=== PATIENT | male | born 1960 | race Caucasian/White ===

== ENCOUNTER 2020-04-28 14:03 | Outpatient (CLI) | payer OTHER, SELFPAY ==
--- NOTE | 2020-04-28 14:30 | XR_ITS ---
WS: [id number] Exam: XR KUB [id number] Date/Time of Exam: 04/28/2020 2:13 PM Reason For Exam: URETERAL STONE No bowel obstruction or free air. No abnormal calcifications seen in the region of the kidneys. Moder ate amount of stool in the colon. Bony structures are intact. Visualized organ margins are unremarkab le. XR/XR KUB [id number] IMPRESSION: 1. No acute finding. No significant abnormal abdominal calcification noted.
== END 2020-04-28 14:04 | disposition home or self-care (01) ==
PROVIDERS: PCP Family Medicine; Visit Provider Urology
DX: N20.1 Calculus of ureter (principal)
CPT/HCPCS: 74018; 81003

== ENCOUNTER 2020-11-20 09:01 | Outpatient (CLI) | payer OTHER, SELFPAY ==
[2020-11-20 09:10] VITALS: BP 125/72; PULSE 82; RESP 16; TEMP 36.8; O2SAT 96; BMI 25.7
[2020-11-20 09:40] VITALS: BP 127/72; PULSE 80; RESP 18; O2SAT 98
[2020-11-20 10:29] VITALS: BP 133/78; PULSE 80; RESP 18; TEMP 37.4; O2SAT 96
== END 2020-11-20 09:02 | disposition home or self-care (01) ==
LOC: OPS 09:06
PROVIDERS: PCP Family Medicine; Visit Provider Physician Assistant
DX: U07.1 COVID-19 (principal)
CPT/HCPCS: 96365

== ENCOUNTER 2021-08-19 10:57 | Emergency (ER) | payer OTHER, SELFPAY ==
[2021-08-19 11:22] VITALS: BP 133/72; PULSE 98; RESP 18; TEMP 38.5; O2SAT 95
--- NOTE | 2021-08-19 11:47 | CT_ITS ---
WS: [id number] CT ABDOMEN PELVIS TECHNIQUE: Contrast-enhanced CT of the abdomen and pelvis with coronal and sagittal reformatted image s. CLINICAL INFORMATION: periumbilical abdominal pain with fever COMPARISON: 2 25,019 DLP: 1102.[address] scans at [facility] use at least one of these dose optimization techniques: automated e xposure control; mA and/or kV adjustment per patient size (includes targeted exams where dose is matc hed to clinical indication); or iterative reconstruction. FINDINGS: Normal appendix in the RIGHT lower quadrant. No evidence of acute appendicitis. Lung bases are well aerated. Noncontrast liver is normal. Incidental hepatic cysts unchanged from pre vious. Normal GE junction. Normal spleen. Adrenal glands are normal. Normal pancreatic parenchymal en hancement. Normal portal vein and splenic vein. Normal caliber abdominal aorta. Normal celiac and SMA . Mild aortic calcification. Mild prostate enlargement measuring 3.6 x 3.2 CM. Normal sigmoid colon. No evidence of small or large bowel obstruction. Normal celiac and SMA. Prominent RIGHT extrarenal pelvis unchanged from previous. No obstructing renal or ureteral calculi. LEFT renal cortical atrophy. Normal bilateral renal parenc hymal enhancement. Small bilateral renal cysts. LEFT renal cortical scarring. Tiny incidental fat-con taining umbilical hernia. CT/CT abdomen pelvis w con* [id number] IMPRESSION: 1. Normal caliber fluid-filled appendix in the RIGHT lower quadrant. No eviden ce of acute appendicitis. 2. No obstructing renal or ureteral calculi. Prominent RIGHT extrarenal pelvis unchanged from previous. 3. Normal sigmoid colon. 4. Incidental hepatic cysts are unchanged. 5. Normal caliber abdominal aorta. 6. Tiny incidental fat-containing umbilical hernia. 7. No other acute findings.
--- NOTE | 2021-08-19 11:54 | W.ED.ABDPA2 ---
HPI - Abdominal Pain General: Chief Complaint: Abdominal Pain Stated Complaint: back/abdominal pain Time Seen by Provider: 08/19/21 11:29 History of Present Illness: 61-year-old male presents emergency department chief complaint of progressive abdominal pain noted around the umbilical region in the superior region this been ongoing progressively getting worse for last 3 days. Patient reports no prior history of any abdominal issues reports has had a low-grade fever at home reports moderate nausea with no vomiting associate with abdominal pain reports is quite sharp in nature with no radiation. Associated Symptoms: Reports chills, fever(s) and nausea Review of Systems General: Reports: 10 or more systems reviewed and unremarkable except in HPI and below Const: Reports: fever(s) and chills; Denies: fatigue or malaise Eyes: Denies: change in vision or blurry vision Card: Denies: chest pain or palpitations Resp: Denies: dyspnea or productive cough GI: Reports: abdominal pain and nausea : Denies: flank pain Musc: Denies: extremity pain or extremity swelling Skin/Breast: Denies: rash or pruritus Neuro: Denies: headache(s) Psych: Denies: anxiety or depression Dylan/Lymph: Denies: easy bleeding All/Imm: Denies: urticaria, throat swelling or facial swelling PFSH ED PFSH: Medical History HTN (hypertension) Metabolic acidosis Pyelonephritis Urolithiasis Surgical History History of lithotripsy History of wisdom tooth extraction Family History Mother Diabetes COMPLICATIONS Father Tuberculosis Social History Smoking and tobacco status: never smoked Alcohol intake: never Marital status: Current occupational status: employed Physical Exam Const: COMMON NORMALS: patient oriented x3 and healthy appearing; apparent distress (Patient appears to be in moderate distress due to pain) HENMT: COMMON NORMALS: normocephalic and atraumatic HEAD & SCALP: normocephalic and atraumatic Eye: COMMON NORMALS: Equal, round and reactive pupils present and EOMs intact bilaterally PUPIL: Yes Equal, round and reactive pupils present Neck/C-Spine: COMMON NORMALS: full ROM, supple and no JVD Lymph: LYMPHATIC: no lymphadenopathy noted Chest: COMMONS NORMALS: normal inspection of the chest and normal palpation of entire chest wall Resp: COMMON NORMALS: normal respiratory effort, No retractions and clear to auscultation bilaterally EFFORT & INSPECTION: Yes able to speak in complete sentences and Yes symmetric chest movement AUSCULTATION: clear to auscultation bilaterally Cardio: COMMON NORMALS: no JVD, regular rate and regular rhythm RATE: regular rate RHYTHM: regular rhythm GI: COMMON NORMALS: Soft to palpation; negative for non-tender (Moderate tenderness noted around the periumbilical region moderate guarding) INSPECTION: Yes normal to inspection PALPATION: Yes Soft to palpation : COMMON NORMALS: Yes no CVA tenderness BLADDER/KIDNEY EXAM: Yes no CVA tenderness Back/Pelvis: COMMON NORMALS: no CVA tenderness Extremity: COMMON NORMALS: normal to inspection and full ROM Neuro: COMMON NORMALS: patient oriented x3, CN's II-XII intact bilaterally, moves all extremities and no focal motor deficits Psych: COMMON NORMALS: mental status grossly normal, Normal thought process present, cooperative and normal affect THOUGHT PROCESS: Normal thought process present Skin: COMMON NORMALS: no rashes or lesions noted GENERAL SKIN EXAM: no rashes or lesions noted Course Vital Signs: Vital signs: Vital Signs Temperature 101.3 F H 08/19/21 11:22 Pulse Rate 85 08/19/21 14:06 Respiratory Rate 16 08/19/21 14:06 Blood Pressure 138/82 08/19/21 14:06 Pulse Oximetry 92 08/19/21 14:06 MDM - Abdominal Pain Medical Decision Making Due to the patient sitting this to be established labwork and imaging will be obtained underlying concerns of acute appendicitis versus other are prominent we will continue to follow. Patient is lab work imaging revealing a white count of 15.4 CT imaging revealed no acute appendicitis renal calculi or any obvious concerns patient does have a febrile illness of unknown origin and advised patient be follow-up with primary care doctor in 2 to 3 days in which to return the interim if any of his symptoms persist or worse he was provided with medication for both pain and nausea patient was discharged from the ER no obvious acute distress. Lab Data : 08/19/21 11:37 08/19/21 11:37 Labs/Radiology: Radiology Impressions Abdomen/Pelvis CT 08/19/21 11:47 IMPRESSION: 1. Normal caliber fluid-filled appendix in the RIGHT lower quadrant. No evidence of acute appendicitis. 2. No obstructing renal or ureteral calculi. Prominent RIGHT extrarenal pelvis unchanged from previous. 3. Normal sigmoid colon. 4. Incidental hepatic cysts are unchanged. 5. Normal caliber abdominal aorta. 6. Tiny incidental fat-containing umbilical hernia. 7. No other acute findings. Laboratory Results WBC 16.4 10^3/uL (4.0-10.0) H 08/19/21 11:37 RBC 4.95 10^6/uL (4.1-5.3) 08/19/21 11:37 Hgb 14.8 g/dL (11.7-16.6) 08/19/21 11:37 Hct 43.6 % (42.0-52.0) 08/19/21 11:37 MCV 88.1 fl (80-94) 08/19/21 11:37 MCH 29.9 pg (28.0-34.0) 08/19/21 11:37 MCHC 33.9 g/dL (30.0-36.0) 08/19/21 11:37 RDW 12.2 % (12.1-15.1) 08/19/21 11:37 Plt Count 270 10^3/cmm (130-400) 08/19/21 11:37 MPV 9.6 fL (7.4-10.4) 08/19/21 11:37 Neut % (Auto) 85.8 % 08/19/21 11:37 Lymph % (Auto) 3.4 % 08/19/21 11:37 [place] % (Auto) 9.2 % 08/19/21 11:37 Eos % (Auto) 0.1 % 08/19/21 11:37 Baso % (Auto) 0.2 % 08/19/21 11:37 Neut # (Auto) 14.10 10^3/uL (1.8-7.7) H 08/19/21 11:37 Lymph # (Auto) 0.6 10^3/uL (0.8-4.8) L 08/19/21 11:37 [place] # (Auto) 1.5 10^3/uL (0.2-0.9) H 08/19/21 11:37 Eos # (Auto) 0.0 10^3/uL (0.0-0.8) 08/19/21 11:37 Baso # (Auto) 0.0 10^3/uL (0.0-0.1) 08/19/21 11:37 Nucleated RBC % (auto) 0 % 08/19/21 11:37 Nucleated RBCs # 0.0 /100WBC 08/19/21 11:37 Sodium 125 mmol/L (136-145) L 08/19/21 11:37 Potassium 4.1 mmol/L (3.5-5.1) 08/19/21 11:37 Chloride 87 mmol/L (98-107) L 08/19/21 11:37 Carbon Dioxide 24 mmol/L (22-29) 08/19/21 11:37 Anion Gap 18.1 (5-19) 08/19/21 11:37 BUN 17 mg/dL (8-23) 08/19/21 11:37 Creatinine 1.0 mg/dL (0.7-1.2) 08/19/21 11:37 GFR Calculation 76.0 mL/min (90-130) L 08/19/21 11:37 Glucose 147 mg/dL (65-115) H 08/19/21 11:37 Calculated Osmolality 264 mOsm/kg (285-295) L 08/19/21 11:37 Lactate 1.2 mmol/L (0.5-2.2) 08/19/21 11:37 Calcium 9.1 mg/dL (8.5-10.5) 08/19/21 11:37 Total Bilirubin 0.4 mg/dL (0.15-1.2) 08/19/21 11:37 AST 58 U/L (0-40) H 08/19/21 11:37 ALT 90 U/L (0-41) H 08/19/21 11:37 Alkaline Phosphatase 85 IU/L (40-130) 08/19/21 11:37 C-Reactive Protein 143.6 mg/L (0.0-4.9) H 08/19/21 11:37 Total Protein 8.6 g/dL (6.6-8.7) 08/19/21 11:37 Albumin 3.9 g/dL (3.5-5.2) 08/19/21 11:37 Globulin 4.7 g/dL (1.3-4.6) H 08/19/21 11:37 Lipase 28 U/L (13-60) 08/19/21 11:37 Urine Color Yellow (Yellow) 08/19/21 12:19 Urine Appearance Clear (CLEAR) 08/19/21 12:19 Urine pH 5 (5-7) 08/19/21 12:19 Ur Specific [place] 1.015 (1.005-1.030) 08/19/21 12:19 Urine Protein 1+ (Negative) H 08/19/21 12:19 Urine Glucose (UA) Norm (Normal) 08/19/21 12:19 Urine Ketones 1+ (Negative) H 08/19/21 12:19 Urine Blood 3+ (Negative) H 08/19/21 12:19 Urine Nitrate Negative (Negative) 08/19/21 12:19 Urine Bilirubin Neg (Negative) 08/19/21 12:19 Urine Urobilinogen Norm mg/dL (Negative) 08/19/21 12:19 Ur Leukocyte Esterase Negative (Negative) 08/19/21 12:19 Urine RBC None /hpf (0-2) 08/19/21 12:19 Urine WBC None /hpf (0-5) 08/19/21 12:19 Ur Squamous Epith Cells None /hpf (0-5) 08/19/21 12:19 Amorphous Sediment Not Reportable 08/19/21 12:19 Urine Bacteria None /hpf (NONE) 08/19/21 12:19 Urine Mucus N /hpf 08/19/21 12:19 Urine Opiates Screen Negative ng/mL (Negative) 08/19/21 12:19 Ur Barbiturates Screen Negative ng/mL (Negative) 08/19/21 12:19 Ur Phencyclidine Scrn Negative ng/mL (Negative) 08/19/21 12:19 Ur Amphetamines Screen Negative ng/mL (Negative) 08/19/21 12:19 U Benzodiazepines Scrn Negative ng/mL (Negative) 08/19/21 12:19 Urine Cocaine Screen Negative ng/mL (Negative) 08/19/21 12:19 U Marijuana (THC) Screen Negative ng/mL (Negative) 08/19/21 12:19 Influenza Type A Ag Negative (Negative) 08/19/21 12:19 Influenza Type B Ag Negative (Negative) 08/19/21 12:19 Discharge Plan Discharge Patient Disposition: Home Clinical Impression: Abdominal pain, Fever Condition: Stable Prescriptions: New tramadol 50 mg tablet 50 mg PO Q8H PRN (Reason: pain) Qty: 15 0RF ondansetron HCl 4 mg tablet 4 mg PO Q8H PRN (Reason: nausea and vomiting) Qty: 14 0RF No Action verapamil 80 mg tablet 80 mg PO DAILY 0RF lisinopril 10 mg tablet 10 mg PO DAILY 0RF allopurinol 300 mg tablet 150 mg PO DAILY 0RF metformin 500 mg tablet 500 mg PO DAILY 0RF Mucinex D 60-600 mg Tablet Extended Release 12 Hr 1 tab PO BID PRN (Reason: Cold Symptoms) 0RF amoxicillin-pot clavulanate 875-125 mg Tablet 1 tab PO BID 0RF Discharge Orders: Discharge ED (Routine); Ordered 08/19/21 Ordered By: [place] Referrals: Alpesh Dumont MD [Primary Care Provider] - 1-3 days Discharge Diet: Advance as tolerated Discharge Activity: Increase activity as tolerated Patient Instructions: Fever - Adult, Abdominal Pain (ED), Opioid Safety Activity Restrictions/Additional Instructions: Follow-up with your primary care doctor in 2 to 3 days, take medication as prescribed increase your water consumption neck several days please return the interim if any of your symptoms persist or worse. Coding Level of Care Code ED [employer] for Priscila Villafuerte Exam Comprehensive
[2021-08-19 11:57] LABS: Basophils % 0.2 %; Eosinophils % 0.1 %; Hematocrit 43.6 % (42.0-52.0); Hemoglobin 14.8 g/dL (11.7-16.6); Lymphocytes # 0.6 10^3/uL (0.8-4.8); Lymphocytes % 3.4 %; Mean Corpuscular HGB Conc 33.9 g/dL (30.0-36.0); Mean Corpuscular Hemoglobin 29.9 pg (28.0-34.0); Mean Corpuscular Volume 88.1 fl (80-94); Mean Platelet Volume 9.6 fL (7.4-10.4); Monocytes # 1.5 10^3/uL (0.2-0.9); Monocytes % 9.2 %; Neutrophils % 85.8 %; Nucleated Red Blood Cells % 0 %; Platelet Count 270 10^3/cmm (130-400); Red Blood Count 4.95 10^6/uL (4.1-5.3); Red Cell Distribution Width 12.2 % (12.1-15.1); White Blood Count 16.4 10^3/uL (4.0-10.0)
[2021-08-19] MEDS: sodium chloride 0.9% 1,000 ML 999 ML IV (11:58)
[2021-08-19] MEDS: ondansetron 2 mg/ML SDV 2 mL 4 MG IVP (11:59)
[2021-08-19] MEDS: ketorolac 30 mg/mL INJ IVP (12:00)
[2021-08-19] MEDS: morphine 4 mg/mL SDV 1 mL IVP (12:00)
[2021-08-19 12:07] LABS: Alanine Aminotransferase 90 U/L (0-41); Albumin Level 3.9 g/dL (3.5-5.2); Alkaline Phosphatase 85 IU/L (40-130); Anion Gap 18.1 (5-19); Aspartate Amino Transferase 58 U/L (0-40); Blood Urea Nitrogen 17 mg/dL (8-23); C Reactive Protein 143.6 mg/L (0.0-4.9); Calcium 9.1 mg/dL (8.5-10.5); Carbon Dioxide 24 mmol/L (22-29); Chloride 87 mmol/L (98-107); Globulin 4.7 g/dL (1.3-4.6); Glucose 147 mg/dL (65-115); Lactate (Lactic Acid level) 1.2 mmol/L (0.5-2.2); Lipase 28 U/L (13-60); Osmolality Calculated 264 mOsm/kg (285-295); Potassium 4.1 mmol/L (3.5-5.1); Sodium 125 mmol/L (136-145); Total Bilirubin 0.4 mg/dL (0.15-1.2); Total Protein 8.6 g/dL (6.6-8.7)
[2021-08-19 12:15] VITALS: BP 171/82; PULSE 103; RESP 16; O2SAT 92
[2021-08-19 12:34] LABS: Add Urine Microscopic? YES; Bilirubin Urine Neg (Negative); Blood Urine 3+ (Negative); Glucose Urine UA Norm (Normal); Ketones Urine 1+ (Negative); Leukocyte Esterase Urine Negative (Negative); Nitrate Urine Negative (Negative); Protein Urine 1+ (Negative); Specific Gravity, Urine 1.015 (1.005-1.030); Urine Appearance Clear (CLEAR); Urine Color Yellow (Yellow); Urobilinogen Urine Norm (Negative); pH Urine 5 (5-7)
[2021-08-19 12:37] LABS: Add Urine Culture? No; Mucus Urine N /hpf
[2021-08-19] MEDS: iohexol 300 mg/mL 100 mL Btl IV (12:39)
[2021-08-19 12:41] LABS: Amphetamines Screen Urine Negative (Negative); Barbiturates Screen Urine Negative (Negative); Benzodiazepines Screen Urine Negative (Negative); Cocaine Screen Urine Negative (Negative); Opiate Screen Urine Negative (Negative); PCP Screen Urine Negative (Negative)
[2021-08-19 13:11] VITALS: BP 139/83; PULSE 86; RESP 16; O2SAT 92
[2021-08-19 13:18] LABS: Influenza A by IFA Negative (Negative); Influenza B by IFA Negative (Negative)
[2021-08-19 14:06] VITALS: BP 138/82; PULSE 85; RESP 16; O2SAT 92
[2021-11-02 14:10] LABS: THC Screen Urine 3 ng/mL (Negative)
== END 2021-08-19 14:07 | disposition home or self-care (01) ==
PROVIDERS: Emergency Provider Emergency Medicine; PCP Family Medicine
DX: R10.9 Unspecified abdominal pain (principal); R50.9 Fever, unspecified; Z79.84 Long term (current) use of oral hypoglycemic drugs
CPT/HCPCS: 74177; 80053; 80306; 81001; 83605; 83690; 85025; 86140; 87804; 96361; 96374; 96375; 99284; J1885; J2270; J2405; J7030; Q9967

== ENCOUNTER 2022-07-15 08:32 | Outpatient (CLI) | payer OTHER, SELFPAY ==
--- NOTE | 2022-07-15 08:52 | XR_ITS ---
WS: [id number] EXAMINATION: XR KUB [id number] REASON FOR EXAM: CALCULUS OF URETER COMPARISON: 04/28/2020 ORDER DATE: 07/15/2022 8:59 AM FINDINGS: There is a nonspecific colonic gas pattern with scattered fecal content and gas. There is no sign of significant small bowel dilation. There are 3 contiguous smooth round 2 mm calcifications superimpos ing the mid sacrum. These are faintly seen on the previous study of 04/28/2020. XR/XR KUB [id number] IMPRESSION: The calcifications noted are somewhat unlikely to be ureteral calculi being unc hanged from previous study on April 28, 2020.
== END 2022-07-15 08:33 | disposition home or self-care (01) ==
PROVIDERS: PCP Family Medicine; Visit Provider Urology
DX: N20.9 Urinary calculus, unspecified (principal)
CPT/HCPCS: 74018